=== PATIENT | female | born 2000 | race African-American/Black ===

== ENCOUNTER 2018-05-20 20:40 | Emergency (ER) | payer OTHER ==
[2018-05-20] MEDS ORDERED: LIDOCAINE 1% MPF 2 ML AMPULE ONE (21:12)
[2018-05-20] MEDS ORDERED: TETANUS & DIPHTHERIA TOX,ADULT 0.5 ML VIAL ONE (21:15)
[2018-05-20] MEDS ORDERED: LIDOCAINE 2% MPF 5 ML VIAL ONE (21:15)
--- NOTE | 2018-05-20 21:35 | ER ---
Nurse's Notes [facility] Name: Nhung Jiang Age: 17 yrs Sex: Female : 2000 Arrival Date: 05/20/2018 Time: 20:44 Bed 13 Private MD: Diagnosis: Thumb Laceration Presentation: 05/20 20:51 Presenting complaint: Patient states: Slammed thumb in metal door approx 2015. I dont ch know when my last tetanus shot was, and it hurts to move it. Transition of care: patient was not received from another setting of care. Onset of symptoms was May 20, 2018 at 20:15. Risk Assessment: Do you want to hurt yourself or someone else? Patient reports no desire to harm self or others. Initial Sepsis Screen: Does the patient meet any 2 criteria? No. Patient's initial sepsis screen is negative. Does the patient have a suspected source of infection? No. Patient's initial sepsis screen is negative. Care prior to arrival: None. 20:51 Method Of Arrival: Ambulatory 20:51 Acuity: KARINE 4 ch Triage Assessment: 20:52 General: Appears in no apparent distress. comfortable, Behavior is calm, cooperative, ch appropriate for age. HOME APPLIANCE TECH: 20:52 LMP N/A - Depo-provera ch Historical: - Allergies: 20:52 No Known Allergies; ch - Home Meds: 20:52 Depo-Provera IM [Active]; ch - PMHx: 20:52 None; ch - PSHx: 20:52 None; ch - Immunization history:: Adult Immunizations up to date, Last tetanus immunization: unknown, Flu vaccine is not up to date. - Social history:: Smoking status: Patient/guardian denies using tobacco, Patient/guardian denies using alcohol, street drugs. - Ebola Screening: : Patient negative for fever greater than or equal to 101.5 degrees Fahrenheit, and additional compatible Ebola Virus Disease symptoms Patient denies exposure to infectious person Patient denies travel to an Ebola-affected area in the 21 days before illness onset No symptoms or risks identified at this time. Screenin:00 Abuse screen: Denies threats or abuse. Nutritional screening: No deficits noted. jb4 Tuberculosis screening: No symptoms or risk factors identified. Fall Risk None identified. Assessment: 21:00 General: Appears in no apparent distress. comfortable, Behavior is calm, cooperative, jb4 appropriate for age. Pain: Complains of pain in Left thumb Pain does not radiate. Pain currently is 10 out of 10 on a pain scale. Quality of pain is described as throbbing. Neuro: Level of Consciousness is awake, alert, obeys commands, Oriented to person, place, time, situation. Cardiovascular: Patient's skin is warm and dry. Respiratory: Airway is patent Respiratory effort is even, unlabored, Respiratory pattern is regular, symmetrical. GI: No signs and/or symptoms were reported involving the gastrointestinal system. : No signs and/or symptoms were reported regarding the genitourinary system. EENT: No signs and/or symptoms were reported regarding the EENT system. Derm: Skin is intact, Skin is dry, Skin is normal, Skin temperature is warm. Musculoskeletal: Circulation, motion, and sensation intact. Injury Description: Laceration sustained to left thumb. 21:59 Reassessment: Patient appears in no apparent distress at this time. Patient and/or jb4 family updated on plan of care and expected duration. Pain level reassessed. Patient is alert, oriented x 3, equal unlabored respirations, skin warm/dry/pink. Discussed D/c, F/u with pt, denies questions or concerns. Vital Signs: 20:52 BP 134 / 87; Pulse 80; Resp 12; Temp 97.7; Pulse Ox 100% on R/A; Weight 77.11 kg; ch Height 5 ft. 7 in. (170.18 cm); Pain 9/10; 21:59 BP 115 / 70; Pulse 67; Resp 16; Pulse Ox 100% on R/A; jb4 20:52 Body Mass Index 26.63 (77.11 kg, 170.18 cm) ED Course: 20:44 Patient arrived in ED. es 20:52 Triage completed. 20:52 Arm band placed on left wrist. Patient placed in an exam room, on a stretcher, wound ch covered with NS soaked gauze. 20:54 Suleman Kumar PA is PHCP. [facility] 20:55 Chang Pérez MD is Attending Physician. [facility] 21:00 Patient has correct armband on for positive identification. Bed in low position. Call jb4 light in reach. Side rails up X 1. Pulse ox on. NIBP on. 21:08 Atlantic, Zeeshan, RN is Primary Nurse. jb4 21:29 Hand Left 3 View XRAY In Process Unspecified. EDMS 21:34 Simone Gutiérrez MD is Referral Physician. [facility] 22:00 No provider procedures requiring assistance completed. Patient did not have IV access jb4 during this emergency room visit. Administered Medications: 21:12 Drug: Tetanus-Diphtheria Toxoid Adult 0.5 ml {Biologist Aide: [employer]. Exp: jb4 05/27/2020. Lot #: [id number]. } Route: IM; Site: right deltoid; 21:36 Follow up: Response: No adverse reaction jb4 21:24 Drug: Lidocaine (1 %) 20 ml {Note: Administered by ED Provider..} Volume: 20 ml; Route: jb4 Infiltration; 21:36 Follow up: Response: No adverse reaction jb4 Outcome: 21:34 Discharge ordered by MD. [facility] 22:00 Discharged to home ambulatory, with friend. jb4 22:00 Condition: stable 22:00 Discharge instructions given to patient, friend, Instructed on discharge instructions, follow up and referral plans. Demonstrated understanding of instructions, follow-up care. 22:01 Patient left the ED. jb4 Signatures: Dispatcher [employer] EDCristina Garcia, RN RN Suelman Douglas PA PA [facility] Zaria Fowler James, RN RN jb4
--- NOTE | 2018-05-20 21:36 | EDPHYS ---
Physician Documentation [facility] Name: Nhung Jiang Age: 17 yrs Sex: Female : 2000 Arrival Date: 05/20/2018 Time: 20:44 Bed 13 Private MD: ED Physician Chang Pérez HPI: 05/20 21:01 This 17 yrs old Black Female presents to ER via Ambulatory with complaints of Thumb jmm Injury. 21:01 The patient or guardian reports injury, a laceration. The complaints affect the dorsal jmm aspect of proximal phalanx of left thumb. Onset: The symptoms/episode began/occurred acutely, just prior to arrival. Modifying factors: The symptoms are alleviated by nothing, the symptoms are aggravated by nothing. Associated signs and symptoms: Pertinent positives: numbness distally. This is a 17 year old female that presents to the ED with left thumb laceration and numbness that presents to the ED with a laceration after accidently slamming a door on her hand. Denies other injury. . [employer]OCIATE: 20:52 LMP N/A - Depo-provera Historical: - Allergies: 20:52 No Known Allergies; ch - Home Meds: 20:52 Depo-Provera IM [Active]; ch - PMHx: 20:52 None; ch - PSHx: 20:52 None; ch - Immunization history:: Adult Immunizations up to date, Last tetanus immunization: unknown, Flu vaccine is not up to date. - Social history:: Smoking status: Patient/guardian denies using tobacco, Patient/guardian denies using alcohol, street drugs. - Ebola Screening: : Patient negative for fever greater than or equal to 101.5 degrees Fahrenheit, and additional compatible Ebola Virus Disease symptoms Patient denies exposure to infectious person Patient denies travel to an Ebola-affected area in the 21 days before illness onset No symptoms or risks identified at this time. ROS: 21:01 Constitutional: Negative for fever, chills, and weight loss, Cardiovascular: Negative jmm for chest pain, palpitations, and edema, Respiratory: Negative for shortness of breath, cough, wheezing, and pleuritic chest pain. 21:01 MS/extremity: Positive for injury or acute deformity. 21:01 Skin: Positive for laceration(s). 21:01 All other systems are negative. Exam: 21:01 Head/Face: atraumatic. Eyes: EOMI, no conjunctival erythema appreciated ENT: Moist [facility] Mucus Membranes Neck: Trachea midline, Supple Chest/axilla: Normal chest wall appearance and motion. Cardiovascular: Regular rate and rhythm. No edema appreciated Respiratory: Normal respirations, no respiratory distress appreciated Abdomen/GI: Non distended, soft Back: Normal ROM 21:01 Constitutional: The patient appears in no acute distress, alert, awake. 21:01 Musculoskeletal/extremity: FROM against resistance noted to the left thumb, < 2 sec distal cap refill, decreased sensation noted distally. . 21:01 Skin: 1.5 cm laceration noted to the left thumb. 21:01 Neuro: Motor: is normal. 21:01 Psych: Behavior/mood is pleasant, cooperative. Vital Signs: 20:52 BP 134 / 87; Pulse 80; Resp 12; Temp 97.7; Pulse Ox 100% on R/A; Weight 77.11 kg; ch Height 5 ft. 7 in. (170.18 cm); Pain 9/10; 21:59 BP 115 / 70; Pulse 67; Resp 16; Pulse Ox 100% on R/A; jb4 20:52 Body Mass Index 26.63 (77.11 kg, 170.18 cm) ch Laceration: 21:01 Wound Repair of 1.5cm ( 0.6in ) subcutaneous laceration to dorsal aspect of proximal jmm phalanx of left thumb. Distal neuro/vascular/tendon intact. Anesthesia: Local anesthetic administered with 2 mls of 2% lidocaine. Wound prep: Moderate cleansing with betadine by me, Wound explored moderately. Skin closed with 3 5-0 Prolene using simple sutures and sterile technique. Dressed with non-adherent dressing. Patient tolerated well. MDM: 21:01 Patient medically screened. [facility] 21:13 Data reviewed: vital signs, nurses notes. Counseling: I had a detailed discussion with keiko the patient and/or guardian regarding: the historical points, exam findings, and any diagnostic results supporting the discharge/admit diagnosis, radiology results, the need for outpatient follow up, to return to the emergency department if symptoms worsen or persist or if there are any questions or concerns that arise at home. 21:13 ED course: Motor function intact. Due to complaints of numbness, I advised the patient [facility] to follow up with hand surgery for wound evaluation. Wound infection return precautions given. . 05/20 21:02 Order name: Hand Left 3 View XRAY; Complete Time: 03:09 [facility] Administered Medications: 21:12 Drug: Tetanus-Diphtheria Toxoid Adult 0.5 ml {Glass Presser: [employer]. Exp: jb4 05/27/2020. Lot #: [id number]. } Route: IM; Site: right deltoid; 21:36 Follow up: Response: No adverse reaction jb4 21:24 Drug: Lidocaine (1 %) 20 ml {Note: Administered by ED Provider..} Volume: 20 ml; Route: jb4 Infiltration; 21:36 Follow up: Response: No adverse reaction jb4 Disposition: 05/21 03:09 Co-signature as Attending Physician, Chang Pérez MD. rn Disposition: 05/20/18 21:34 Discharged to Home. Impression: Thumb Laceration. - Condition is Stable. - Discharge Instructions: Laceration Care, Adult. - Medication Reconciliation Form, Thank You Letter, Antibiotic Education, Prescription Opioid Use form. - Follow up: Simone Gutiérrez MD; When: 1 week; Reason: Recheck today's complaints, Continuance of care, Staple/Suture removal, Re-evaluation by your physician. - Notes: Please follow up with plastics/hand surgery if you continue to have numbness. Sutures will need to be removed in 7 days. Please return to the ED if you develop weakness to the humb, fever, redness around the wound site or any other signs of infection. Signatures: Dispatcher [employer] EDMS Cristina Duron RN RN ch Mickail, Joel, PA PA jmm Nieto, Roman, MD MD rn Bryson, James, RN RN jb4 Corrections: (The following items were deleted from the chart) 05/20 22:01 21:34 05/20/2018 21:34 Discharged to Home. Impression: Thumb Laceration. Condition is jb4 Stable. Forms are Medication Reconciliation Form, Thank You Letter, Antibiotic Education, Prescription Opioid Use. Follow up: Simone Gutiérrez; When: 1 week; Reason: Recheck today's complaints, Continuance of care, Staple/Suture removal, Re-evaluation by your physician. keiko
--- NOTE | 2018-05-20 21:56 | RAD REPORT ---
EXAM DESCRIPTION: RAD - Hand Left 3 View - 05/20/2018 9:29 pm CLINICAL HISTORY: Hand pain, blunt force trauma to the thumb COMPARISON: None. FINDINGS: No fracture, dislocation or periosteal reaction noted. No foreign body or significant soft tissue abnormality. IMPRESSION: Negative left hand examination.
== END 2018-05-20 22:01 | disposition home or self-care (01) ==
LOC: ER 20:40
PROC: 0JQK0ZZ Repair Left Hand Subcutaneous Tissue and Fascia, Open Approach (ICD-10-PCS; principal; 2018-05-20)
DX: S61.012A Laceration without foreign body of left thumb without damage to nail, initial encounter (principal); W22.8XXA Striking against or struck by other objects, initial encounter; Y93.89 Activity, other specified; Y92.9 Unspecified place or not applicable; Z23 Encounter for immunization
CPT/HCPCS: 90714; 99283; J2001

== ENCOUNTER 2024-02-13 20:29 | Emergency (ER) | payer OTHER ==
--- OUTSIDE RECORDS SUMMARY | 2024-02-13 20:32 | XMS REPORT | Continuity of Care Document ---
Author Name Unknown Address [address] [place] [address] [facility] [address] [place] [address] Care Team Providers Care Automotive Accessory Installer Name Role Phone FIDENCIO CALDERÓN Primary Care Physician Unavailab le [email or web address]_Kadiyala_S Attending Clinician Unavaila ble Only, Ang Db Test Attending Clinician Unavailabl anahy Pimentel PLAYGROUND SUPERVISORNani Attending Clinician [phone] Margarita Hurtado Attending Clinician [phone] Doctor Unassigned, [place] Attending Clinician U DOREEN Day Attending Clinician Unavailable Miles PLAYGROUND SUPERVISORDoreen Attending Clinician [phone] Thalia Murphy Attending Clinician GC_GCBZW_Kadiyala_S Admitting Clinician Unavaila DOREEN Ortiz Admitting Clinician Unavailable Payers Payer Name Policy Type Policy Number Effective Date Expirati on Date Source Problems Condition Name Condition Details Condition Category Status Onset Date Resolution Date Last Treatment Date Treating Clinician Comments Source No known active problems No known active problems Disease [facility] Allergies, Adverse Reactions, Alerts Allergy Name Allergy Type Status Severity Reaction(s) Onset Date Inactive Date Treating Clinician Comments Source NO KNOWN ALLERGIE S Drug Class Active [facility] Social History Social Habit Start Date Stop Date Quantity Comments Source Exposure to SARS-CoV-2 (event) Yes [facility] Sex Assigned At 2000 00:00:00 2000 00:00:00 [facility] Smoking Status Start Date Stop Date Source Unknown if ever smoked [facility] Medications Ordered Medication Name Filled Medication Name Start Date Stop Date Current Medication? Ordering Clinician Indication Dosage Frequency Signature (SIG) Comments Components Source ibuprofen 600 mg tablet 12-11 00:00: 00 Yes [id number] 600mg Take 1 tablet by mouth every 6 (six) hours as needed for Pain (scale 4-6). [facility] albuterol 90 mcg/actuati on inhaler 12-11 00:00: 00 Yes [id number] 2{puff} Inhale 2 Puffs every 4 (four) hours as needed for Wheezing or Shortness of Breath. [facility] inhalationa l spacing device (BREATHERIT E MDI SPACER) 12-11 00:00: 00 Yes [id number] Use as with MDI as directed [facility] ondansetron (ZOFRAN ODT) 4 mg disintegrat ing tablet 12-11 00:00: 00 Yes [id number] 4mg Take 1 tablet by mouth every 8 (eight) hours as needed for Nausea and Vomiting (N/V). [facility] benzonatate 100 mg capsule 12-11 00:00: 00 Yes [id number] 100mg Take 1 capsule by mouth 3 (three) times daily as needed for Cough. [facility] iohexol (OMNIPAQUE 350 BULK-100 mL) injection 120 mL 09-29 02:15: 00 09-29 01:58 :00 No 120mL 120 mL, Intravenou s, ONCE, 1 dose, 09/29/19 at 2115, Routine [facility] naproxen 375 mg tablet 09-28 00:00: 00 Yes [id number] 105 375mg Take 1 tablet by mouth 2 (two) times daily with meals as needed for Pain (scale 7-10). [facility] No known medications No Un lui [facility] Vital Signs Vital Name Observation Time Observation Value Comments S ource Systolic blood pressure 2020-12-11 19:33:00 139 mm[Hg] [facility] Diastolic blood pressure 2020-12-11 19:33:00 85 mm[Hg] [facility] Heart rate 2020-12-11 19:33:00 95 /min Unive [facility] Body temperature 2020-12-11 19:33:00 37.17 Cande [facility] Respiratory rate 2020-12-11 19:33:00 14 /min [facility] Body weight 2020-12-11 19:33:00 90.719 kg [facility] Oxygen saturation in Arterial blood by Pulse oximetry 2020-12-11 19:33:00 99 /min [facility] Systolic blood pressure 2019-09-30 02:35:00 128 mm[Hg] [facility] Diastolic blood pressure 2019-09-30 02:35:00 71 mm[Hg] [facility] Heart rate 2019-09-30 02:35:00 68 /min Unive [facility] Respiratory rate 2019-09-30 02:35:00 18 /min [facility] Oxygen saturation in Arterial blood by Pulse oximetry 2019-09-30 02:35:00 100 /min [facility] Body temperature 2019-09-29 23:34:00 37.28 [facility] Body height 2019-09-29 23:34:00 170.2 cm [facility] Body weight 2019-09-29 23:34:00 91.173 kg [facility] BMI 2019-09-29 23:34:00 31.48 kg/m2 [facility] Systolic blood pressure 2019-06-29 20:08:00 121 mm[Hg] [facility] Diastolic blood pressure 2019-06-29 20:08:00 84 mm[Hg] [facility] Heart rate 2019-06-29 20:08:00 88 /min Unive [facility] Body temperature 2019-06-29 20:08:00 36.28 [facility] Respiratory rate 2019-06-29 20:08:00 18 /min [facility] Body weight 2019-06-29 20:08:00 88.497 kg [facility] Oxygen saturation in Arterial blood by Pulse oximetry 2019-06-29 20:08:00 99 /min [facility] Procedures Procedure Date / Time Performed Performing Clinicia n Source ASSIGNMENT OF BENEFITS 2020-12-11 20:43:57 Docto r Unassigned, [place] [facility] COVID-19 (ID NOW RAPID TESTING) 2020-12-11 19:36:00 Ricardo Tomas [facility] NOTICE OF PRIVACY PRACTICES 2020-12-11 19:28:53 Doctor Unassigned, [place] [facility] CONSENT/REFUSAL FOR DIAGNOSIS AND TREATMENT 2020-12-11 19:28:32 Doctor Unassigned, [place] [facility] CT CHEST PULMONARY ANGIOGRAM 2019-09-30 02:02:45 Doreen Aquino [facility] BASIC METABOLIC PANEL (NA, K, CL, CO2, GLUCOSE, BUN, CREATININE, CA) 2019-09-30 00:46:00 Doreen Aquino [facility] D-DIMER 2019-09-30 00:46:00 [facility] POCT TEST 2019-09-30 00:38:00 Timbo Aquino [facility] XR ANKLE 3+ VW LEFT 2019-09-30 00:17:24 Vanessa Dubon ra [facility] XR CHEST 2 VW 2019-09-30 00:17:05 Doreen Aquino [facility] EKG-12 LEAD 2019-09-29 23:56:40 Doreen Aquino [facility] NOTICE OF PRIVACY PRACTICES 2019-09-29 23:25:44 Doctor Unassigned, [place] [facility] CONSENT/REFUSAL FOR DIAGNOSIS AND TREATMENT 2019-09-29 23:25:31 Doctor Unassigned, [place] [facility] Encounters Start Date/Time End Date/Time Encounter Type Admission Type Attending Clinicians Care Facility Care Department Encounter ID Source 2021-03-09 13:28:56 Emergency [facility] [id number] [facility] 2023-03-05 00:00:00 2023-03-05 00:00:00 Outpatient GC_GCBZW_Ka diyala_S PRIV PRIV [id number] [facility] 2023-03-05 00:00:00 2023-03-05 00:00:00 Outpatient GC_GCBZW_Ka diyala_S PRIV PRIV [id number] [facility] 2021-01-15 15:34:16 2021-01-15 15:44:16 Laboratory Only Only, Ang Db Test Nani Pimentel [facility] [id number] [id number] [facility] 2021-01-15 15:15:00 2021-01-15 15:15:00 Outpatient R [facility] [id number] [facility] 2020-12-11 14:36:00 2020-12-11 15:54:00 Emergency Margarita Singleton [facility] [id number] [facility] 2020-12-11 00:00:00 2020-12-11 00:00:00 Orders Only Doctor Unassigned, [place] [facility] [id number] [id number] [facility] 2019-09-29 18:32:09 2019-09-29 22:10:00 [facility] E[facility] [id number] [facility] 2019-09-29 18:32:09 2019-09-29 22:10:00 Emergency Doreen Aquino [facility] [id number] [id number] [facility] 2019-06-29 14:09:21 2019-06-29 15:20:00 Emergency DanoThalia [facility] [id number] [facility] Results Test Description Test Time Test Comments Results Result Co mments Source [id number] 01:30:00* Test Item Value Reference Range Interpretation Comments D-DIMER (test code = 4494340542) See_Comment H [Automated message] The system which generated this result transmitted reference range: <0.41 ?g/mL (FEU). The reference range was not used to interpret this result as normal/abnormal. JOLLY (test code = JOLLY) This test may be used in conjunction with a clinical pretest probability (PTP) assessment model to exclude venous thromboembolism (VTE) in patients suspected of deep venous thrombosis (DVT) and pulmonary embolism (PE) A D-Dimer value less than 0.50 ?g/ml (FEU) has a negative predicative value of 96 to 100% (95% CI)and 97 to 100% (95% CI) as an aid in the diagnosis of deep vein thrombosis (DVT) and pulmonary embolism when there is low or moderate pretest probability of PE or DVT. D-Dimer values are expressed in initial fibrinogen equivalent units (FEU)" The assay results should be used with other information, including the clinical context, in forming a diagnosis. Lab Interpretation (test code = 61265-4) Abnormal [facility] (NA, K, CL, CO2, GLUCOSE, BUN, CREATININE, CA)2019-09-30 01:25:00* Test Item Value Reference Range Interpretation Comme nts NA (test code = 0139037717) 140 mmol/L 135-145 K (test code = 8628894593) 4.0 mmol/L 3.5-5 CL (test code = 6146546808) 107 mmol/L 98-108 CO2 TOTAL (test code = 2574691337) 22 mmol/L 23-31 L AGAP (test code = 8641851013) 2-16 BUN (test code = 1136731287) 13 mg/dL 7-23 GLUCOSE (test code = 5932782967) 93 mg/dL 70-110 CREATININE (test code = 0063518126) 0.68 mg/dL 0.5-1.04 CALCIUM (test code = 7727320793) 9.5 mg/dL 8.6-10.6 eGFR Calculation (Non-) (test code = 4532855033) mL/min/1.73m2 eGFR Calculation () (test code = 5374733083) mL/min/1.73m2 JOLLY (test code = JOLLY) Association of Glomerular Filtration Rate (GFR) and Staging of Kidney Disease* + --+ --+ ------+| GFR (mL/min/1.73 m2) ?| With Kidney Damage ?| ?Without Kidney Damage+ --------+ --------+ +| ?>90 ?| ?Stage one ?| ? Normal ?+ ---+ ---+ -------+| ?60-89 ?| ?Stage two ?| ? Decreased GFR ? + --+ --+ ------+| ?30-59 ?| ?Stage three ?| ? Stage three ? + --+ --+ ------+| ?15-29 ?| ?Stage four ? | ? Stage four ?+ ---+ ---+ -------+| ?<15 (or dialysis) ? ?| ?Stage five ? | ? Stage five ?+ ---+ ---+ -------+ *Each stage assumes the associated GFR level has been in effect for at least three months. ?Stages 1 to 5, with or without kidney disease, indicate chronic kidney disease. Notes: Determination of stages one and two (with eGFR >59mL/min/1.73 m2) requires estimation of kidney damage for at least three months as defined by structural or functional abnormalities of the kidney, manifested by either:Pathological abnormalities or Markers of kidney damage (including abnormalities in the composition of the blood or urine or abnormalities in imaging tests). Lab Interpretation (test code = 83762-8) Abnormal [facility] 2 [id number] 00:43:22No acute cardiopulmonary abnormality. Preliminary Report Dictated by Resident: Alexis Jacobo ?MD Hayes., have reviewed this study and agree withthe above report.EXAM: XR CHEST 2 VW HISTORY: chest pain COMPARISON: Chest x-ray 08/20/2018 Technique: ?PA and lateral view radiograph of the chest FINDINGS: The lungs are clear. No focal consolidation, pleural effusion orpneumothorax is seen. The cardiac silhouette is normal in size. No acute bony abnormality. [facility], Radiant Results Inft User - 09/29/2019 7:44 PM CDTEXAM: XR CHEST 2 VWHISTORY: chest pain COMPARISON: Chest x-ray 08/20/2018Technique: PA and lateral view radiograph of the chestFINDINGS:The lungs are clear. No focal consolidation, pleural effusion orpneumothorax is seen. The cardiac silhouette is normal in size.No acute bony abnormality.IMPRESSIONNo acute cardiopulmonary abnormality.Preliminary Report Dictated by Resident: Chadd Bear, Alexis Koo MD., have reviewed this study and agree withthe above report. [facility] [id number] 00:38:00* Test Item Value Reference Range Interpretation Comme nts POCT PREG (test code = 1605) Negative On board controls acceptable with C Line (test code = 3574) Present POCT PREG LOT # (test code = 3575) HCG [id number] POCT PREG TEST DATE ( test code = 3576) 12/06/2020 Lab Interpretation (test cod e = 76050-4) Normal [facility]
[2024-02-13] MEDS ORDERED: NA CHLORIDE 0.9% 1,000 ML ONE (21:22)
[2024-02-13] MEDS ORDERED: ONDANSETRON 4 MG/2 ML VIAL ONE (21:22)
[2024-02-13 21:49] LABS: Absolute Eosinophils 0.1 K/uL (0-0.5); Absolute Lymphocytes (CBC) 2.6 K/uL (0.7-4.9); Absolute Monocytes 0.7 K/uL (0.1-1.3); Absolute Neutrophil 5.4 K/uL (1.8-8.0); Basophils % 0.5 % (0-1.3); Eosinophils % 0.8 % (0-4.4); Hematocrit 37.8 % (36.0-45.0); Hemoglobin 12.8 g/dL (12.0-15.0); Lymphocytes % 29.8 % (15.3-44.8); MCH 32.9 pg (27.0-35.0); MCHC 33.8 g/dL (32.0-36.0); MCV 97.2 fL (80-100); Monocytes % 7.6 % (3.3-12.3); Neutrophils % 61.3 % (41.7-73.7); Platelets 307 thou/uL (152-406); RBC Red Blood Cell Count 3.88 M/uL (3.86-4.86); Red Cell Distribution Width 11.9 % (12.1-15.2)
[2024-02-13 21:50] LABS: Specific Gravity 1.021 (1.005-1.030)
[2024-02-13 21:54] LABS: Specific Gravity 1.022 (1.005-1.030); Sqamous Epithelial <5 /HPF (None Seen); Urine Bacteria None Seen /HPF (<20); Urine Bilirubin NEGATIVE (Negative); Urine Blood 1+ (Negative); Urine Clarity Clear (Clear); Urine Color Light-Yellow (Yellow); Urine Culture Reflex Order NOT NEEDED; Urine Glucose NEGATIVE (Negative); Urine Ketones 1+ (Negative); Urine Microscopic Reflex YN ORDER UMIC; Urine Mucus 2+ /HPF (None Seen); Urine Nitrite NEGATIVE (Negative); Urine Protein TRACE (Negative); Urine RBC <5 /HPF (None Seen); Urine Urobilinogen Normal (Normal); Urine WBC <5 /HPF (<5)
[2024-02-13] MEDS ORDERED: KETOROLAC 30 MG/ML INJ ONE (22:02)
[2024-02-13 22:09] LABS: Anion Gap 9.1 mEq/L (5.0-15.0); BUN Blood Urea Nitrogen 16 mg/dL (7-18); Bicarbonate 25 mEq/L (21-32); Glomerular Filtration Rate 93 ml/min (=/>90); Glucose Level 85 mg/dL (74-106); Potassium 3.1 mEq/L (3.5-5.1); Sodium Level 136 mEq/L (136-145)
[2024-02-13 22:17] LABS: HCG, Quantitative < 1 mIU/mL (1-3)
--- NOTE | 2024-02-13 23:31 | ER ---
Nurse's Notes [facility] Name: Nhung Jiang Age: 23 yrs Sex: Female : 2000 Arrival Date: 02/13/2024 Time: 20:29 Bed 7 Private MD: Diagnosis: Irregular menstruation, unspecified Presentation: 02/12 20:38 Chief complaint: Patient states: Vaginal bleeding with cramping and back pain onset cm10 last night. Pt states that her period was supposed to start 4-5 days ago. Pt states that her bleeding has never been this bad. Coronavirus screen: Client denies travel out of the [place] in the last 14 days. Ebola Screen: Patient denies travel to an Ebola-affected area in the 21 days before illness onset. No symptoms or risks identified at this time. Initial Sepsis Screen: Does the patient meet any 2 criteria? No. Patient's initial sepsis screen is negative. Does the patient have a suspected source of infection? No. Patient's initial sepsis screen is negative. Risk Assessment: Do you want to hurt yourself or someone else? Patient reports no desire to harm self or others. Onset of symptoms was February 13, 2024. 20:38 Method Of Arrival: Ambulatory cm10 20:38 Acuity: KARINE 3 cm10 Triage Assessment: 20:39 General: Appears in no apparent distress. comfortable, Behavior is calm, cooperative. cm10 Neuro: No deficits noted. Level of Consciousness is awake, alert, obeys commands, Oriented to person, place, time, situation, Appropriate for age. Respiratory: No deficits noted. Airway is patent Respiratory effort is even, unlabored, Respiratory pattern is regular, symmetrical. 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 - Infectious Disease History:: Denies. - Social history:: Smoking status: Reported history of juuling and/or vaping. Screenin:00 [facility] ED Fall Risk Assessment (Adult) History of falling in the last 3 months, al5 including since admission No falls in past 3 months (0 pts) Confusion or Disorientation No (0 pts) Intoxicated or Sedated No (0 pts) Impaired Gait No (0 pts) Mobility Assist Device Used No (0 pt) Altered Elimination No (0 pt) Score/Fall Risk Level 0 - 2 = Low Risk Oriented to surroundings, Maintained a safe environment, Hourly rounding (assess needs \T\ fall precautionary measures) done. 21:00 Abuse screen: Denies threats or abuse. Denies injuries from another. Nutritional al5 screening: No deficits noted. Tuberculosis screening: No symptoms or risk factors identified. Assessment: 21:00 General: Appears in no apparent distress. uncomfortable, Behavior is calm, cooperative. al5 Pain: Complains of pain in low back area, suprapubic area, right lower quadrant and left lower quadrant Pain currently is 7 out of 10 on a pain scale. Neuro: Level of Consciousness is awake, alert, obeys commands, Oriented to person, place, time, situation. Cardiovascular: Capillary refill < 3 seconds Patient's skin is warm and dry. Respiratory: Airway is patent Respiratory effort is even, unlabored, Respiratory pattern is regular, symmetrical. GI: Abdomen is flat, non-distended, Reports lower abdominal pain. : Reports pain in lower back vaginal bleeding that is bright red, with clots, heavy flow since this morning, states she goes through a super plus tampon every 2 hours which is not normal for her. EENT: No signs and/or symptoms were reported regarding the EENT system. Derm: Skin is intact, is healthy with good turgor, Skin is normal. Musculoskeletal: No signs and/or symptoms reported regarding the musculoskeletal system. Vital Signs: 20:38 BP 131 / 81; Pulse 76; Resp 16; Temp 98.9; Pulse Ox 99% on R/A; Weight 86.18 kg; Height cm10 5 ft. 6 in. ; Pain 7/10; 20:54 BP 121 / 81; Pulse 64; Resp 18; Pulse Ox 98% on R/A; al5 21:00 BP 119 / 82; Pulse 64; Resp 18; Pulse Ox 99% on R/A; al5 21:15 BP 118 / 76; Pulse 71; Resp 18; Pulse Ox 98% on R/A; al5 21:30 BP 124 / 86; Pulse 70; Resp 18; Pulse Ox 99% on R/A; al5 21:45 BP 110 / 67; Pulse 60; Resp 18; Pulse Ox 98% on R/A; al5 22:30 BP 115 / 78; Pulse 72; Resp 18; Pulse Ox 97% on R/A; al5 22:45 BP 114 / 79; Pulse 69; Resp 18; Pulse Ox 100% on R/A; al5 23:00 BP 100 / 75; Pulse 70; Resp 18; Pulse Ox 97% on R/A; al5 23:15 BP 116 / 79; Pulse 65; Resp 18; Pulse Ox 99% on R/A; al5 20:38 Body Mass Index 30.67 (86.18 kg, 167.64 cm) cm10 20:38 Pain Scale: Adult cm10 ED Course: 20:32 Patient arrived in ED. ra3 20:32 Agnieszka Leonard FNP-C is [facility] kb 20:32 Randall Deluna MD is Attending Physician. kb 20:39 Triage completed. cm10 20:40 Arm band placed on right wrist. Patient placed in an exam room, on a stretcher. cm10 21:00 Patient has correct armband on for positive identification. Bed in low position. Call al5 light in reach. Side rails up X2. Provided Education on: plan of care. 21:20 Shawnee Sierra, RN is Primary Nurse. al5 21:36 No provider procedures requiring assistance completed. Inserted saline lock: 22 gauge al5 in right antecubital area, using aseptic technique. 21:43 Abo/rh Typing Sent. al5 21:43 Basic Metabolic Panel Sent. al5 21:43 CBC with Diff Sent. al5 21:43 Test, Urine Sent. al5 21:43 Quantitative Hcg Sent. al5 21:43 Urinalysis w/ reflexes Sent. al5 22:36 US Transvaginal Study (Probe) In Process Unspecified. EDMS 23:43 IV discontinued, intact, bleeding controlled, No redness/swelling at site. Pressure al5 dressing applied. Administered Medications: 21:42 Drug: Ondansetron IVP 4 mg IVP once; over 2 minutes Route: IVP; Site: right antecubital;al5 23:33 Follow up: Response: No adverse reaction; Nausea is decreased al5 21:43 Drug: NS 0.9% IV 1000 ml IV at 1000 ml once Route: IV; Rate: 1000 ml; Site: right al5 antecubital; 23:33 Follow up: Response: No adverse reaction; IV Status: Completed infusion; IV Intake: al5 1000ml 22:05 Drug: Ketorolac IVP 15 mg IVP once Route: IVP; Site: right antecubital; al5 23:32 Follow up: Response: No adverse reaction; Pain is decreased al5 23:39 Drug: Potassium Chloride PO 40 mEq PO once Route: PO; al5 23:39 Follow up: Response: No adverse reaction; Medication administered at discharge. al5 Medication: 21:00 VIS not applicable for this client. al5 Intake: 23:33 IV: 1000ml; Total: 1000ml. al5 Outcome: 23:30 Discharge ordered by . jhoan 23:43 Discharged to home ambulatory, al5 23:43 Condition: good 23:43 Discharge instructions given to patient, Instructed on discharge instructions, follow up and referral plans. Demonstrated understanding of instructions, follow-up care, 23:43 Patient left the ED. al5 Signatures: Dispatcher [employer] EDPA Agnieszka Leonard, SARAH-C EMERGENCY DEPARTMENT MANAGER-Karlie Wagner, RN RN cm10 Christa Mercer 3 Shawnee Sierra RN RN al5 Corrections: (The following items were deleted from the chart) 21:50 21:44 General: Appears in no apparent distress. uncomfortable, Behavior is calm, al5 cooperative, al5 21:50 21:44 Pain: Complains of pain in low back area, suprapubic area, right lower quadrant al5 and left lower quadrant Pain currently is 7 out of 10 on a pain scale. al5 21:50 21:44 Neuro: Level of Consciousness is awake, alert, obeys commands, Oriented to al5 person, place, time, situation, al5 21:50 21:44 Cardiovascular: Capillary refill < 3 seconds Patient's skin is warm and dry. al5 al5 21:50 21:44 Respiratory: Airway is patent Respiratory effort is even, unlabored, Respiratory al5 pattern is regular, symmetrical, al5 21:50 21:44 GI: Abdomen is flat, non-distended, Reports lower abdominal pain, al5 al5 21:50 21:44 : Reports pain in lower back vaginal bleeding that is bright red, with clots, al5 heavy flow since this morning, states she goes through a super plus tampon every 2 hours which is not normal for her. al5 :50 21:44 EENT: No signs and/or symptoms were reported regarding the EENT system. al5 al5 :50 21:44 Derm: Skin is intact, is healthy with good turgor, Skin is normal, al5 al5 :50 21:44 Musculoskeletal: No signs and/or symptoms reported regarding the musculoskeletal al5 system. al5 :57 20:39 PMHx: None; cm10 al5
--- NOTE | 2024-02-13 23:31 | EDPHYS ---
Physician Documentation [facility] Name: Nhung Jiang Age: 23 yrs Sex: Female : 2000 Arrival Date: 02/13/2024 Time: 20:29 Bed 7 Private MD: ED Physician Randall Deluna HPI: 02/12 21:39 This 23 yrs old Black Female presents to ER via Ambulatory with complaints of Vaginal kb Bleeding - and cramping, Back Pain. 21:39 Pt is a 23 year old female who presents for vaginal bleeding with abd and low back kb cramping pain that started this morning. States the bleeding is heavier than her normal cycle. Reports she was supposed to start her period 5 days ago. Denies fever, urinary symptoms. 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 - Infectious Disease History:: Denies. - Social history:: Smoking status: Reported history of juuling and/or vaping. ROS: 21:38 Constitutional: As per HPI kb Exam: 21:39 Constitutional: This is a well developed, well nourished patient who is awake, alert, kb and in no acute distress. Head/Face: Normocephalic, atraumatic. ENT: Moist Mucous membranes Cardiovascular: Regular rate Respiratory: Respirations even and unlabored. No increased work of breathing. Talking in full sentences Abdomen/GI: Soft, non-tender. No distention Back: No spinal tenderness. No costovertebral tenderness. Full range of motion. Skin: Warm, dry with normal turgor. Normal color. MS/ Extremity: Pulses equal, no cyanosis. Neurovascular intact. Full, normal range of motion. Neuro: Awake and alert, GCS 15, oriented to person, place, time, and situation. Moves all extremities. Normal gait. Vital Signs: 20:38 BP 131 / 81; Pulse 76; Resp 16; Temp 98.9; Pulse Ox 99% on R/A; Weight 86.18 kg; Height cm10 5 ft. 6 in. ; Pain 7/10; 20:54 BP 121 / 81; Pulse 64; Resp 18; Pulse Ox 98% on R/A; al5 21:00 BP 119 / 82; Pulse 64; Resp 18; Pulse Ox 99% on R/A; al5 21:15 BP 118 / 76; Pulse 71; Resp 18; Pulse Ox 98% on R/A; al5 21:30 BP 124 / 86; Pulse 70; Resp 18; Pulse Ox 99% on R/A; al5 21:45 BP 110 / 67; Pulse 60; Resp 18; Pulse Ox 98% on R/A; al5 22:30 BP 115 / 78; Pulse 72; Resp 18; Pulse Ox 97% on R/A; al5 22:45 BP 114 / 79; Pulse 69; Resp 18; Pulse Ox 100% on R/A; al5 23:00 BP 100 / 75; Pulse 70; Resp 18; Pulse Ox 97% on R/A; al5 23:15 BP 116 / 79; Pulse 65; Resp 18; Pulse Ox 99% on R/A; al5 20:38 Body Mass Index 30.67 (86.18 kg, 167.64 cm) cm10 20:38 Pain Scale: Adult cm10 MDM: 20:32 Patient medically screened. kb 21:39 Data reviewed: vital signs, nurses notes. kb 22:27 Differential diagnosis: menorrhea, ovarian cyst, uterine fibroids, . kb 23:31 Counseling: I had a detailed discussion with the patient and/or guardian regarding the kb historical points, exam findings, and any diagnostic results supporting the discharge/admit diagnosis, lab results, the need for outpatient follow up, an OB/Gyne specialist, to return to the emergency department if symptoms worsen or persist or if there are any questions or concerns that arise at home. ED course: Pt does not want to wait for US results. States she would like to go home. Educated to follow up with MONORAIL HOOKER and US results should be available on the portal in the next few days. . 02/12 20:37 Order name: Abo/rh Typing; Complete Time: 22:09 kb 02/12 20:37 Order name: Basic Metabolic Panel; Complete Time: 22:17 kb 02/12 20:37 Order name: CBC with Diff; Complete Time: 21:50 kb 02/12 20:37 Order name: Test, Urine; Complete Time: 21:58 kb 02/12 20:37 Order name: Quantitative Hcg; Complete Time: 22:17 kb 02/12 20:37 Order name: Urinalysis w/ reflexes; Complete Time: 21:58 kb 02/12 22:18 Order name: US Transvaginal Study (Probe) kb 02/12 20:37 Order name: IV Saline Lock; Complete Time: 21:43 kb 02/12 20:37 Order name: Labs collected and sent; Complete Time: 21:43 kb 02/12 20:37 Order name: NPO; Complete Time: 22:01 kb Administered Medications: 21:42 Drug: Ondansetron IVP 4 mg IVP once; over 2 minutes Route: IVP; Site: right antecubital;al5 23:33 Follow up: Response: No adverse reaction; Nausea is decreased al5 21:43 Drug: NS 0.9% IV 1000 ml IV at 1000 ml once Route: IV; Rate: 1000 ml; Site: right al5 antecubital; 23:33 Follow up: Response: No adverse reaction; IV Status: Completed infusion; IV Intake: al5 1000ml 22:05 Drug: Ketorolac IVP 15 mg IVP once Route: IVP; Site: right antecubital; al5 23:32 Follow up: Response: No adverse reaction; Pain is decreased al5 23:39 Drug: Potassium Chloride PO 40 mEq PO once Route: PO; al5 23:39 Follow up: Response: No adverse reaction; Medication administered at discharge. al5 Disposition: 23:48 Co-signature as Attending Physician, Randall Deluna MD I reviewed the patient's care rt provided by the Advanced Practice Provider and agree with the diagnosis and treatment plan. Disposition Summary: 02/13/24 23:30 Discharge Ordered Notes: Location: Home kb Condition: Stable kb Diagnosis - Irregular menstruation, unspecified kb Followup: kb - With: Emergency Department - When: As needed - Reason: Worsening of condition Followup: kb - With: Private Physician - When: 2 - 3 days - Reason: Recheck today's complaints, Continuance of care, Re-evaluation by your physician Discharge Instructions: - Discharge Summary Sheet kb - Abnormal Uterine Bleeding, Twmg-go-Ctnr kb Forms: - Medication Reconciliation Form kb - Antibiotic Education kb - Prescription Opioid Use kb - Patient Portal Instructions kb - Leadership Thank You Letter kb Signatures: Dispatcher [employer] Agnieszka Villalobos FNP-C FNP-Ckb Randall Deluna MD MD rt Karlie Carbajal RN RN cm10 Shawnee Sierra RN RN al5 Corrections: (The following items were deleted from the chart) 21:57 20:39 PMHx: None; cm10 al5
[2024-02-13] MEDS ORDERED: POTASSIUM CL SA 10 MEQ TAB PO ONE (23:35)
--- NOTE | 2024-02-13 23:48 | RAD REPORT ---
EXAM: US Pelvis Transvaginal CLINICAL HISTORY: VAGINAL BLEEDING TECHNIQUE: Real-time transvaginal pelvic ultrasound with image documentation. Transvaginal imaging was used fo r better evaluation of the endometrium and adnexa. COMPARISON: No relevant prior studies available. FINDINGS: Uterus/cervix: The uterus is anteverted and measures 7.3 x 3.1 x 3.8 cm. The endometrial stripe clifton sures 4 mm in thickness. Nabothian cysts at the level of the cervix. No myometrial mass. Right ovary: The right ovary measures 3.9 x 2.2 x 2.5 cm. Normal blood flow. Left ovary: The left ovary measures 3 x 2 x 2.4 cm. Normal blood flow. Free fluid: No free fluid. Bladder: Empty bladder which cannot be evaluated with this probe. IMPRESSION: No focal uterine abnormality. Electronically signed by: Rogers Grijalva MD 02/13/2024 11:32 PM CDT RP Due to temporary technical issues with the [employer] reporting system, reports are being signed by the in-house radiologist without review as a courtesy to ensure prompt reporting the interpreting radiologist is fully responsible for the content of the report. Transcribed Date/Time: 02/13/2024 11:48 PM
[2024-02-14 00:29] VITALS: TEMP 98.9
[2024-02-14 00:40] VITALS: BP 116/79; O2SAT 99
== END 2024-02-13 23:43 | disposition home or self-care (01) ==
LOC: ER 20:29
DX: N92.6 Irregular menstruation, unspecified (principal)
CPT/HCPCS: 96361; 85025; 81001; 80048; 36415; 86900; 81025; 86901; 84702; 76830; 96375; 96374; 99284; J2405; J7030

== ENCOUNTER 2024-07-08 10:39 | Inpatient (IN) | payer OTHER ==
--- OUTSIDE RECORDS SUMMARY | 2024-07-08 10:42 | XMS REPORT | Continuity of Care Document ---
Author Name Unknown Address [address] [place] [address] [address] [id number] [facility] Address [address] [facility] [address] [place] [address] Care Team Providers Care Poultry Scientist Name Role Phone BRYCE CALDERÓNH Primary Care Physician Unavailab le [email or web address]_S Attending Clinician Unavaila ble Only, Ang Db Test Attending Clinician Unavailabl anahy Pimentel CUSTOMER SERVICE REPNani Attending Clinician [phone] AreliMargarita Goss Attending Clinician [phone] Doctor Unassigned, [place] Attending Clinician U DOREEN Day Attending Clinician Unavailable Miles CUSTOMER SERVICE REPDoreen Barrtet Attending Clinician [phone] Thalia Murphy Attending Clinician [phone] [place]_GCBZW_Kadiyala_S Admitting Clinician Unavaila DOREEN Ortiz Admitting Clinician Unavailable Payers Payer Name Policy Type Policy Number Effective Date Expirati on Date Source Problems Condition Name Condition Details Condition Category Status Onset Date Resolution Date Last Treatment Date Treating Clinician Comments Source No known active problems No known active problems Disease [facility] Allergies, Adverse Reactions, Alerts Allergy Name Allergy Type Status Severity Reaction(s) Onset Date Inactive Date Treating Clinician Comments Source NO KNOWN ALLERGIE S Drug Class Active [facility] Social History Social Habit Start Date Stop Date Quantity Comments Source Exposure to SARS-CoV-2 (event) Yes [facility] Sex Assigned At 2000 00:00:00 2000 00:00:00 [facility] Smoking Status Start Date Stop Date Source Unknown if ever smoked [facility] Medications Ordered Medication Name Filled Medication Name Start Date Stop Date Current Medication? Ordering Clinician Indication Dosage Frequency Signature (SIG) Comments Components Source ibuprofen 600 mg tablet 12-11 00:00: 00 Yes [id number] 600mg Take 1 tablet by mouth every 6 (six) hours as needed for Pain (scale 4-6). [facility] albuterol 90 mcg/actuati on inhaler 12-11 00:00: 00 Yes [id number] 2{puff} Inhale 2 Puffs every 4 (four) hours as needed for Wheezing or Shortness of Breath. [facility] inhalationa l spacing device (BREATHERIT E MDI SPACER) 12-11 00:00: 00 Yes [id number] Use as with MDI as directed [facility] ondansetron (ZOFRAN ODT) 4 mg disintegrat ing tablet 12-11 00:00: 00 Yes [id number] 4mg Take 1 tablet by mouth every 8 (eight) hours as needed for Nausea and Vomiting (N/V). [facility] benzonatate 100 mg capsule 12-11 00:00: 00 Yes [id number] 100mg Take 1 capsule by mouth 3 (three) times daily as needed for Cough. [facility] iohexol (OMNIPAQUE 350 BULK-100 mL) injection 120 mL 09-29 02:15: 00 09-29 01:58 :00 No 120mL 120 mL, Intravenou s, ONCE, 1 dose, 09/29/19 at 2115, Routine [facility] naproxen 375 mg tablet 09-28 00:00: 00 Yes [id number] 105 375mg Take 1 tablet by mouth 2 (two) times daily with meals as needed for Pain (scale 7-10). [facility] No known medications No Un lui [facility] Vital Signs Vital Name Observation Time Observation Value Comments S ource Systolic blood pressure 2020-12-11 19:33:00 139 mm[Hg] [facility] Diastolic blood pressure 2020-12-11 19:33:00 85 mm[Hg] [facility] Heart rate 2020-12-11 19:33:00 95 /min Un[facility] Body temperature 2020-12-11 19:33:00 37.17 Cande [facility] Respiratory rate 2020-12-11 19:33:00 14 /min [facility] Body weight 2020-12-11 19:33:00 90.719 kg [facility] Oxygen saturation in Arterial blood by Pulse oximetry 2020-12-11 19:33:00 99 /min [facility] Systolic blood pressure 2019-09-30 02:35:00 128 mm[Hg] [facility] Diastolic blood pressure 2019-09-30 02:35:00 71 mm[Hg] [facility] Heart rate 2019-09-30 02:35:00 68 /min Unive [facility] Respiratory rate 2019-09-30 02:35:00 18 /min [facility] Oxygen saturation in Arterial blood by Pulse oximetry 2019-09-30 02:35:00 100 /min [facility] Body temperature 2019-09-29 23:34:00 37.28 [facility] Body height 2019-09-29 23:34:00 170.2 cm [facility] Body weight 2019-09-29 23:34:00 91.173 kg [facility] BMI 2019-09-29 23:34:00 31.48 kg/m2 [facility] Systolic blood pressure 2019-06-29 20:08:00 121 mm[Hg] [facility] Diastolic blood pressure 2019-06-29 20:08:00 84 mm[Hg] [facility] Heart rate 2019-06-29 20:08:00 88 /min Un[facility] Body temperature 2019-06-29 20:08:00 36.28 [facility] Respiratory rate 2019-06-29 20:08:00 18 /min [facility] Body weight 2019-06-29 20:08:00 88.497 kg [facility] Oxygen saturation in Arterial blood by Pulse oximetry 2019-06-29 20:08:00 99 /min [facility] Procedures Procedure Date / Time Performed Performing Clinicia n Source ASSIGNMENT OF BENEFITS 2020-12-11 20:43:57 Docto r Unassigned, [place] [facility] COVID-19 (ID NOW RAPID TESTING) 2020-12-11 19:36:00 Ricardo Tomas [facility] NOTICE OF PRIVACY PRACTICES 2020-12-11 19:28:53 Doctor Unassigned, [place] [facility] CONSENT/REFUSAL FOR DIAGNOSIS AND TREATMENT 2020-12-11 19:28:32 Doctor Unassigned, [place] [facility] CT CHEST PULMONARY ANGIOGRAM 2019-09-30 02:02:45 Doreen Aquino [facility] BASIC METABOLIC PANEL (NA, K, CL, CO2, GLUCOSE, BUN, CREATININE, CA) 2019-09-30 00:46:00 Doreen Aquino [facility] D-DIMER 2019-09-30 00:46:00 [facility] POCT TEST 2019-09-30 00:38:00 Timbo Aquino [facility] XR ANKLE 3+ VW LEFT 2019-09-30 00:17:24 Vanessa Dubon ra [facility] XR CHEST 2 VW 2019-09-30 00:17:05 Doreen Aquino [facility] EKG-12 LEAD 2019-09-29 23:56:40 Doreen [facility]ino [facility] NOTICE OF PRIVACY PRACTICES 2019-09-29 23:25:44 Doctor Unassigned, [place] [facility] CONSENT/REFUSAL FOR DIAGNOSIS AND TREATMENT 2019-09-29 23:25:31 Doctor Unassigned, [place] [facility] Encounters Start Date/Time End Date/Time Encounter Type Admission Type Attending Clinicians Care Facility Care Department Encounter ID Source 2021-03-09 13:28:56 Emergency [facility] [id number] [facility] 2023-03-05 00:00:00 2023-03-05 00:00:00 Outpatient GC_GCBZW_Ka diyala_S PRIV PRIV [id number] [facility] 2023-03-05 00:00:00 2023-03-05 00:00:00 Outpatient GC_GCBZW_Ka diyala_S PRIV PRIV [id number] [facility] 2021-01-15 15:34:16 2021-01-15 15:44:16 Laboratory Only Only, Ang Db Test Nani Pimentel [facility] [id number] [facility] 2021-01-15 15:15:00 2021-01-15 15:15:00 Outpatient R [facility] [id number] [facility] 2020-12-11 14:36:00 2020-12-11 15:54:00 Emergency Margarita Singleton [facility] [id number] [facility] 2020-12-11 00:00:00 2020-12-11 00:00:00 Orders Only Doctor Unassigned, [place] [facility] [id number] [id number] [facility] 2019-09-29 18:32:09 2019-09-29 22:10:00 Emergency X [facility] ERT [id number] [facility] 2019-09-29 18:32:09 2019-09-29 22:10:00 Emergency Doreen Aquino [facility] [id number] [id number] [facility] 2019-06-29 14:09:21 2019-06-29 15:20:00 Emergency Thalia Mat[facility] [id number] [facility] Results Test Description Test Time Test Comments Results Result Co mments Source [id number] 01:30:00* Test Item Value Reference Range Interpretation Comments D-DIMER (test code = 4950096259) See_Comment H [Automated message] The system which [...] a diagnosis. Lab Interpretation (test code = 47959-6) [facility]normal [facility] (NA, K, CL, CO2, GLUCOSE, BUN, CREATININE, CA)2019-09-30 01:25:00* Test Item Value Reference Range Interpretation Comme nts NA (test code = 2779855326) 140 mmol/L 135-145 K (test code = 4860310940) 4.0 mmol/L 3.5-5 CL (test code = 3734574177) 107 mmol/L 98-108 CO2 TOTAL (test code = 4581845790) 22 mmol/L 23-31 L AGAP (test code = 5996042685) 2-16 BUN (test code = 9309725749) 13 mg/dL 7-23 GLUCOSE (test code = 3759067626) 93 mg/dL 70-110 CREATININE (test code = 7449598505) 0.68 mg/dL 0.5-1.04 CALCIUM (test code = 4174729514) 9.5 mg/dL 8.6-10.6 eGFR Calculation (Non-) (test code = 9504043612) mL/min/1.73m2 eGFR Calculation () (test code = 7212730228) mL/min/1.73m2 JOLLY (test code = JOLLY) Association [...] imaging tests). Lab Interpretation (test code = 28115-9) [facility] 2 [id number] 00:43:22No acute cardiopulmonary abnormality. Preliminary Report Dictated [...] this study and agree withthe above report. [facility] [id number] 00:38:00* Test Item Value Reference Range Interpretation Comme nts POCT PREG (test code = 1605) Negative On board controls acceptable with C Line (test code = 3574) Present POCT PREG LOT # (test code = 3575) HCG [id number] POCT PREG TEST DATE ( test code = 3576) 12/06/2020 Lab Interpretation (test cod e = 96927-4) Normal [facility]
[2024-07-08 11:59] LABS: Absolute Lymphocytes (CBC) 0.9 K/uL (0.7-4.9); Absolute Monocytes 0.8 K/uL (0.1-1.3); Absolute Neutrophil 10.3 K/uL (1.8-8.0); Basophils % 0.2 % (0-1.3); Eosinophils % 0.3 % (0-4.4); Hematocrit 36.1 % (36.0-45.0); Hemoglobin 12.4 g/dL (12.0-15.0); Lymphocytes % 7.7 % (15.3-44.8); MCH 32.7 pg (27.0-35.0); MCHC 34.3 g/dL (32.0-36.0); MCV 95.1 fL (80-100); MPV 7.1 fL (7.6-11.3); Monocytes % 6.2 % (3.3-12.3); Neutrophils % 85.6 % (41.7-73.7); Platelets 252 thou/uL (152-406); Red Cell Distribution Width 11.9 % (12.1-15.2)
[2024-07-08 12:00] LABS: Specific Gravity 1.021 (1.005-1.030); Transitional Epithelial <5 /HPF (None Seen); Urine Bacteria 20-50 /HPF (<20); Urine Bilirubin NEGATIVE (Negative); Urine Blood 3+ (OVER) (Negative); Urine Clarity Extremely Turbid (Clear); Urine Color Yellow (Yellow); Urine Culture Reflex Order REFLEXED; Urine Glucose NEGATIVE (Negative); Urine Ketones 3+ (Negative); Urine Microscopic Reflex YN ORDER UMIC; Urine Mucus 4+ /HPF (None Seen); Urine Nitrite NEGATIVE (Negative); Urine Protein TRACE (Negative); Urine Urobilinogen Normal (Normal); Urine pH 5.5 (5.0-7.0)
[2024-07-08 12:07] LABS: Anion Gap 8.5 mEq/L (5.0-15.0); Potassium 3.5 mEq/L (3.5-5.1)
[2024-07-08] MEDS ORDERED: KETOROLAC 30 MG/ML INJ ONE (12:11)
[2024-07-08] MEDS ORDERED: NA CHLORIDE 0.9% 1,000 ML ONE (12:11)
[2024-07-08 12:31] LABS: Specific Gravity 1.021 (1.005-1.030)
[2024-07-08 12:51] LABS: Blood Morphology Comment NOT SEEN (NOT SEEN); Platelet Estimate ADEQ; White Blood Cell Scan OK (OK)
--- NOTE | 2024-07-08 13:00 | RAD REPORT ---
EXAM: CT pelvis with contrast HISTORY: Pelvic and hip pain labial abscess COMPARISON: None TECHNIQUE: Multiple contiguous axial images were obtained and a CT of the pelvis with IV contrast. Sa gittal and coronal reformats were performed. One or more of the following dose reduction techniques were used: Automated exposure control, adjustment of the mA and/or kV according to patient size, and/ or iterative reconstruction. FINDINGS: The visualized intrapelvic structures are unremarkable. The soft tissues surrounding the pelvis are u nremarkable. Enhancing thick walled fluid collection in the right labia measures 7.3 x 2.7 cm compatible with la bial abscess. No intrapelvic extension. No pelvic fractures are seen. No significant degenerative changes are seen. No additional abnormal areas of contrast-enhancement to suggest tumor or infection. IMPRESSION: 7.3 x 2.7 cm right labial abscess suspected. There is no evidence of intrapelvic extensio n of this infection.
--- NOTE | 2024-07-08 13:37 | EDPHYS ---
Physician Documentation [facility] Name: Nhung Jiang Age: 23 yrs Sex: Female : 2000 Arrival Date: 07/08/2024 Time: 10:39 Bed 16 Private MD: ED Physician Randall Deluna HPI: 07/08 11:48 This 23 yrs old Black Female presents to ER via Ambulatory with complaints of Cyst - on sb4 vaginal area. 11:51 the patient presents with a swollen area of the right labia minora. Description: The sb4 affected area is small, localized, swollen, tense. Onset: The symptoms/episode began/occurred 3 day(s) ago. Possible cause(s): unknown. Associated signs and symptoms: Pertinent negatives: discharge, drainage, fever. The patient has not experienced similar symptoms in the past. The patient has not recently seen a physician. 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 - Infectious Disease History:: Denies. - Social history:: Smoking status: Reported history of juuling and/or vaping. ROS: 11:51 Constitutional: Negative for fever, chills, and weight loss, sb4 11:51 : Positive for per HPI, 11:51 All other systems are negative, Exam: 11:51 Constitutional: This is a well developed, well nourished patient who is awake, alert, sb4 and in no acute distress. Head/Face: Normocephalic, atraumatic. Eyes: Extra-ocular motions intact. Periorbital areas with no swelling, redness, or edema. ENT: Mucous membranes moist. Cardiovascular: Regular rate and rhythm with a normal S1 and S2. Respiratory: No increased work of breathing, no retractions or nasal flaring. Abdomen/GI: Soft, non-tender, no distension. Skin: Warm, dry with normal turgor. Normal color with no rashes, no lesions, and no evidence of cellulitis. 11:51 : Pelvic Exam: External exam: no erythema, not excoriated, no evidence of foreign body, no lesions, no ulcerations, no warts seen, large labial abscess, right. moderate tenderness, no drainage, Vital Signs: 11:18 BP 119 / 76; Pulse 101; Resp 19; Temp 99.1; Pulse Ox 97% ; Weight 86.18 kg; Height 5 jl7 ft. 5 in. ; Pain 10/10; 12:22 BP 121 / 85; Pulse 81; Resp 18; Temp 98(O); Pulse Ox 100% on R/A; kj2 13:30 BP 124 / 82; Pulse 80; Resp 18; Pulse Ox 100% on R/A; kj2 15:36 BP 126 / 84; Pulse 78; Resp 18; Temp 98; Pulse Ox 100% on R/A; kj2 11:18 Body Mass Index 31.62 (86.18 kg, 165.1 cm) jl7 11:18 Pain Scale: Adult jl7 MDM: 10:48 Medical Screening Exam initiated sb4 14:04 Data reviewed: vital signs, nurses notes, lab test result(s), radiologic studies, and sb4 as a result, I will admit patient. Consideration of Admission/Observation Patient was admitted/placed on observation. 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 Counseling: I had a detailed discussion with the patient and/or guardian regarding the historical points, exam findings, and any diagnostic results supporting the discharge/admit diagnosis, lab results, radiology results, the need for further work-up and treatment in the hospital. 07/08 11:25 Order name: CBC with Diff; Complete Time: 12:55 sb4 07/08 11:25 Order name: Test, Urine; Complete Time: 12:32 sb4 07/08 11:25 Order name: Urinalysis w/ reflexes; Complete Time: 12:01 sb4 07/08 11:25 Order name: BMP; Complete Time: 12:08 sb4 07/08 11:25 Order name: GC (Simón/Chl) Probe URINE sb4 07/08 12:03 Order name: Urine Culture EDNE 07/08 12:51 Order name: CBC Smear Scan; Complete Time: 12:55 EDNE 07/08 13:28 Order name: Blood Culture Adult (2) sb4 07/08 13:28 Order name: Lactate w/ 2H reflex if indic.; Complete Time: 14:30 sb4 07/08 13:28 Order name: PT-INR; Complete Time: 14:26 sb4 07/08 13:28 Order name: Ptt, Activated; Complete Time: 14:26 sb4 07/08 13:47 Order name: Basic Metabolic Panel EDMS 07/08 13:47 Order name: Basic Metabolic Panel EDMS 07/08 13:47 Order name: Basic Metabolic Panel EDMS 07/08 13:47 Order name: Basic Metabolic Panel EDMS 07/08 13:47 Order name: Basic Metabolic Panel EDMS 07/08 13:47 Order name: CBC with Automated Diff EDMS 07/08 13:47 Order name: CBC with Automated Diff EDMS 07/08 13:47 Order name: CBC with Automated Diff EDMS 07/08 13:47 Order name: CBC with Automated Diff EDMS 07/08 13:47 Order name: CBC with Automated Diff EDMS 07/08 11:25 Order name: CT Pelvis w cont; Complete Time: 13:01 sb4 07/08 11:25 Order name: IV Saline Lock; Complete Time: 11:38 sb4 07/08 11:25 Order name: Labs collected and sent; Complete Time: 11:38 sb4 07/08 13:28 Order name: NPO; Complete Time: 13:39 sb4 Administered Medications: 12:17 Drug: NS 0.9% IV 1000 ml IV at 1 bolus Per protocol; to be given as a bolus over 60 kj2 minutes Route: IV; Rate: 1 bolus; Site: left antecubital; 14:04 Follow up: IV Status: Completed infusion; IV Intake: 1000ml kj2 12:17 Drug: Ketorolac IVP 15 mg IVP once Route: IVP; Site: left antecubital; kj2 14:04 Follow up: Response: No adverse reaction kj2 14:04 Drug: Piperacillin-Tazobactam IVPB 3.375 grams IVPB once over 60 mins; (mix in NS 100 kj2 mL) Route: IVPB; Infused Over: 60 mins; Site: left antecubital; 15:35 Follow up: IV Status: Completed infusion; IV Intake: 100ml kj2 15:35 Not Given (will start in OR): vancomycin1.5 grams IVPB at calculated rate once kj2 Disposition: 18:50 Co-signature as Attending Physician, Randall Deluna MD I reviewed the patient's care rt provided by the Advanced Practice Provider and agree with the diagnosis and treatment plan. Disposition Summary: 07/08/24 13:36 Hospitalization Ordered Notes: Hospitalization Status: Inpatient Admission sb4 Provider: Georges Pérez sb4 [facility] sb4 Condition: Fair sb4 Problem: new sb4 Symptoms: are unchanged sb4 Bed/Room Type: Standard sb4 Room Assignment: 204(07/08/24 14:00) sp Diagnosis - Labial abscess, right - 7 cm sb4 Forms: - Medication Reconciliation Form sb4 - SBAR form sb4 - Leadership Thank You Letter sb4 Signatures: Dispatcher [employer] EDMS Anusha Green Jahala RN RN jl7 Ghada Bowers PAIselaC PAIsealC sb4 Randall Deluna MD MD rt Ana Paula Nowak RN RN kj2 Corrections: (The following items were deleted from the chart) 11:26 11:26 CBC+H.LAB.BRZ ordered. EDNE EDMS 11:26 11:26 Test, Urine+UC.LAB.BRZ ordered. EDNE EDMS 11:26 11:26 Urinalysis+U.LAB.BRZ ordered. EDNE EDMS 11: 11:26 BASIC METABOLIC PANEL+C.LAB.BRZ ordered. EDNE EDMS 11:26 11:26 GC (Simón/Chl) Probe URINE+R.LAB.BRZ ordered. EDNE EDMS 13:28 13:28 BLOOD CULTURE*+BA.LAB.BRZ ordered. EDMS EDMS 13:28 13:28 LACTATE+C.LAB.BRZ ordered. EDNE EDMS 13:28 13:28 PROTIME (+INR)+COAG.LAB.BRZ ordered. EDMS EDMS 13:28 13:28 PTT, ACTIVATED+COAG.LAB.BRZ ordered. EDNE EDMS 14:00 13:36 sb4 sp 14:05 11:51 : Pelvic Exam: External exam: Bartholin's cyst present, no erythema, not sb4 excoriated, no evidence of foreign body, no lesions, no ulcerations, no warts seen, sb4
--- NOTE | 2024-07-08 13:37 | ER ---
Nurse's Notes [facility] Name: Nhung Jiang Age: 23 yrs Sex: Female : 2000 Arrival Date: 07/08/2024 Time: 10:39 Bed 16 Private MD: Diagnosis: Labial abscess, right - 7 cm Presentation: 07/08 11:18 Chief complaint: Patient states: Abscess to right labia x 3-4 days, intermittent jl7 vaginal discharge x 2 weeks, denies odor. Coronavirus screen: At this time, the client does not indicate any symptoms associated with coronavirus-19. Ebola Screen: No symptoms or risks identified at this time. Initial Sepsis Screen: Does the patient meet any 2 criteria? No. Patient's initial sepsis screen is negative. Does the patient have a suspected source of infection? No. Patient's initial sepsis screen is negative. Risk Assessment: Do you want to hurt yourself or someone else? Patient reports no desire to harm self or others. Onset of symptoms is unknown. 11:18 Method Of Arrival: Ambulatory jl7 11:18 Acuity: KARINE 3 jl7 Triage Assessment: 11:21 General: Appears in no apparent distress. uncomfortable, Behavior is calm, cooperative, jl7 appropriate for age. Pain: Complains of pain in pelvis Pain currently is 10 out of 10 on a pain scale. 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 - Infectious Disease History:: Denies. - Social history:: Smoking status: Reported history of juuling and/or vaping. Screenin:30 [facility] ED Fall Risk Assessment (Adult) History of falling in the last 3 months, kj2 including since admission No falls in past 3 months (0 pts) Confusion or Disorientation No (0 pts) Intoxicated or Sedated Impaired Gait No (0 pts) Mobility Assist Device Used No (0 pt) Altered Elimination No (0 pt) Score/Fall Risk Level 0 - 2 = Low Risk Maintained a safe environment, Hourly rounding (assess needs \T\ fall precautionary measures) done. Abuse screen: Denies threats or abuse. Denies injuries from another. Nutritional screening: No deficits noted. Tuberculosis screening: No symptoms or risk factors identified. Assessment: 11:30 General: Appears in no apparent distress. Behavior is calm, cooperative. Pain: kj2 Complains of pain in right labia minora and groin Pain currently is 3 out of 10 on a pain scale. Neuro: Level of Consciousness is awake, alert, obeys commands, Oriented to person, place, time, situation. Cardiovascular: Patient's skin is warm and dry. Respiratory: Airway is patent Respiratory effort is even, unlabored. GI: No signs and/or symptoms were reported involving the gastrointestinal system. : Reports discharge, from vagina that is. 12:23 Reassessment: Patient appears in no apparent distress at this time. Patient and/or kj2 family updated on plan of care and expected duration. Pain level reassessed. Patient is alert, oriented x 3, equal unlabored respirations, skin warm/dry/pink. 13:30 Reassessment: Patient appears in no apparent distress at this time. Patient and/or kj2 family updated on plan of care and expected duration. Pain level reassessed. Patient is alert, oriented x 3, equal unlabored respirations, skin warm/dry/pink. 14:30 Reassessment: Patient appears in no apparent distress at this time. Patient and/or kj2 family updated on plan of care and expected duration. Pain level reassessed. Patient is alert, oriented x 3, equal unlabored respirations, skin warm/dry/pink. 15:36 Reassessment: Patient appears in no apparent distress at this time. Patient and/or kj2 family updated on plan of care and expected duration. Pain level reassessed. Patient is alert, oriented x 3, equal unlabored respirations, skin warm/dry/pink. Vital Signs: 11:18 BP 119 / 76; Pulse 101; Resp 19; Temp 99.1; Pulse Ox 97% ; Weight 86.18 kg; Height 5 jl7 ft. 5 in. ; Pain 10/10; 12:22 BP 121 / 85; Pulse 81; Resp 18; Temp 98(O); Pulse Ox 100% on R/A; kj2 13:30 BP 124 / 82; Pulse 80; Resp 18; Pulse Ox 100% on R/A; kj2 15:36 BP 126 / 84; Pulse 78; Resp 18; Temp 98; Pulse Ox 100% on R/A; kj2 11:18 Body Mass Index 31.62 (86.18 kg, 165.1 cm) jl7 11:18 Pain Scale: Adult jl7 ED Course: 10:42 Patient arrived in ED. im 10:45 Ghada Bowers PA-C is PHCP. sb4 10:45 Randall Deluna MD is Attending Physician. sb4 11:21 Triage completed. jl7 11:21 Arm band placed on right wrist. jl7 11:30 Patient has correct armband on for positive identification. Bed in low position. Call kj2 light in reach. Provided Education on: call light. 11:39 Initial lab(s) drawn, by me, sent to lab. Urine collected: clean catch specimen, elaine bp colored. Inserted saline lock: 20 gauge in left antecubital area, using aseptic technique. Blood collected. Flushed with 10 mL NS. 11:53 Ana Paula Nowak, MATILDE is Primary Nurse. kj2 12:52 CT Pelvis w cont In Process Unspecified. EDMS 13:36 Georges Pérez MD is Hospitalizing Provider. sb4 15:37 Patient admitted, IV remains in place. kj2 15:37 No provider procedures requiring assistance completed. kj2 Administered Medications: 12:17 Drug: NS 0.9% IV 1000 ml IV at 1 bolus Per protocol; to be given as a bolus over 60 kj2 minutes Route: IV; Rate: 1 bolus; Site: left antecubital; 14:04 Follow up: IV Status: Completed infusion; IV Intake: 1000ml kj2 12:17 Drug: Ketorolac IVP 15 mg IVP once Route: IVP; Site: left antecubital; kj2 14:04 Follow up: Response: No adverse reaction kj2 14:04 Drug: Piperacillin-Tazobactam IVPB 3.375 grams IVPB once over 60 mins; (mix in NS 100 kj2 mL) Route: IVPB; Infused Over: 60 mins; Site: left antecubital; 15:35 Follow up: IV Status: Completed infusion; IV Intake: 100ml kj2 15:35 Not Given (will start in OR): vancomycin1.5 grams IVPB at calculated rate once kj2 Medication: 11:56 VIS not applicable for this client. kj2 Intake: 14:04 IV: 1000ml; Total: 1000ml. kj2 15:35 IV: 100ml; Total: 1100ml. kj2 Outcome: 13:36 Decision to Hospitalize by Provider. sb4 15:36 Admitted to Med/surg accompanied by tech, kj2 15:36 Condition: stable 15:36 Instructed on the need for admit, 15:37 Patient left the ED. kj2 Signatures: Dispatcher [employer] Zamzam Donahue, RN RN [email or web address] Cj Galan, RN RN Ghada Matthews, PA-C PA-C sb4 Gisele Campa Krystal, RN RN kj2
[2024-07-08] MEDS ORDERED: NA CHLORIDE 0.9% 100 ML ONE (13:42)
[2024-07-08] MEDS ORDERED: PIPERACIL/TAZO 3.375 GM VIAL IV ONE (13:42)
[2024-07-08] MEDS ORDERED: ONDANSETRON 4 MG/2 ML VIAL IV PRN (13:46)
[2024-07-08] MEDS ORDERED: MORPHINE 2 MG/ML SYR IV PRN (13:46)
[2024-07-08 14:22] LABS: PT Prothrombin Time 15.1 SECONDS (10.0-13.0); PTT, Activated Partial Thromb 25.4 SECONDS (24.3-36.9); Protime INR 1.34
--- NOTE | 2024-07-08 14:31 | P.HP ---
Certification for Inpatient Patient admitted to: Inpatient Patient will require the following post-hospital care: None Practitioner: I am a practitioner with admitting privileges, knowledge of patient current condition, hospital course, and medical plan of care. Services: Services provided to patient in accordance with Admission requirements found in Title 42 Section 412.3 of the Code of Federal Regulations Patient History Date of Service: 07/08/24 Reason for admission: Labial abscess History of Present Illness: 23-year-old otherwise healthy female presents to the emergency department with chief complaint of vaginal/labial pain/swelling. She reports that she has been dealing with the issue ongoing for around a year to year and a half but typically the swelling and pain is very mild and resolved on its own without any drainage. This time the pain and swelling is significantly increased and not getting better. She was evaluated in the ER her labs are significant for a white blood cell count 12.1 CT of the pelvis was obtained which showed a 7.3 x 2.7 cm right labial abscess. She was started on antibiotics with vancomycin/Zosyn, seen by general surgery in the ED who plans to bring her to the OR for surgical incision and drainage given the size of the abscess. Allergies No Known Allergies Allergy (Unverified 07/31/16 15:38) - Past Medical/Surgical History -: None -: Cosmetic surgeries Psychosocial/ Personal History: Lives with her family - Social History Alcohol use: No CD- Drugs: No Caffeine use: Yes Place of Residence: Home Review of Systems 10-point ROS is otherwise unremarkable Genitourinary: Other (Vaginal pain/swelling) Physical Examination - Physical Exam General: Alert, In no apparent distress, Oriented x3 HEENT: Atraumatic, PERRLA, EOMI Neck: Supple, 2+ carotid pulse no bruit, No LAD Respiratory: Clear to auscultation bilaterally, Normal air movement Cardiovascular: Regular rate/rhythm, Normal S1 S2 Gastrointestinal: Normal bowel sounds, No tenderness Musculoskeletal: No tenderness Integumentary: No rashes Neurological: Normal speech, Normal strength at 5/5 x4 extr External genitalia: Other (Abscess noted to right labial area) - Studies Laboratory Data (last 24 hrs) 07/08/24 07/08/24 11:40 11:40 WBC 12.10 H Hgb 12.4 Hct 36.1 Plt Count 252 Sodium 137 Potassium 3.5 BUN 12 Creatinine 0.85 Glucose 88 Assessment and Plan - Plan Assessment: Large right labial abscess Plan: Large right labial abscess Plan for surgical I&D today Continue antibiotics vancomycin/Zosyn Await further recs from general surgery DVT PPX:SCD Code status:Full Discharge Plan: Home Plan to discharge in: 48 Hours - Advance Directives Does patient have a Living Will: No Does patient have a Durable POA for Healthcare: No Critical Care: No Time Spent Managing Pts Care (In Minutes): 65
[2024-07-08] MEDS ORDERED: VANCOMYCIN 1.5 GM in NA CHLORIDE 0.9% 500 ML IVPB SCH (15:00)
[2024-07-08] MEDS: Ringers Lactate 1,000 ML IV ONE (15:40)
[2024-07-08] MEDS: PIPER TAZO 3.375 GM in NA CHLORIDE 0.9% 100 ML IV SCH (17:00)
[2024-07-08] MEDS ORDERED: ONDANSETRON 4 MG/2 ML VIAL ONE (17:26)
[2024-07-08] MEDS ORDERED: LIDOCAINE 2% MPF 5 ML VIAL ONE (17:26)
[2024-07-08] MEDS ORDERED: MIDAZOLAM HCL 2 MG/2 ML INJ ONE (17:26)
[2024-07-08] MEDS ORDERED: propofoL 200 MG/20 ML VIAL IV ONE (17:26)
[2024-07-08] MEDS ORDERED: FENTANYL CITR 100 MCG/2 ML ONE (17:26)
[2024-07-08] MEDS ORDERED: dexAMETHasone 4 MG/ML VIAL ONE (18:19)
[2024-07-08] MEDS: LIDOCAINE HCL/EPINEPHRINE 20 ML MDV ONE (18:20)
--- NOTE | 2024-07-08 18:29 | P.OP ---
Preoperative diagnosis: RIGHT Labial Abscess Postoperative diagnosis: RIGHT Labial Abscess Primary procedure: Incision and Drainage of RIGHT Labial Abscess Secondary procedure: Exam under anesthesia Anesthesia: GETA + Local Estimated blood loss: <2cc Specimen: Cultures Findings: ~ 7cmx 3cm RIGHT labial abscess Complications: None Transferred to: Recovery Room Condition: Good
[2024-07-08] MEDS: HYDROMORPHONE HCL 2 MG/ML inj ONE (18:51)
--- NOTE | 2024-07-08 19:03 | CON ---
Date of Consultation: 07/08/2024 Brief Hpi: The patient is a 23-year-old female, who comes in with approximately 3-day history of swe lling of her right labia. She feels that it is the labia minora as well as area of majora with a swo llen tender area which got progressively worse. As such, she came to the emergency room with the abo ve-stated complaints. She has not had similar episodes before in the past. No sick contacts. No re cent travel. No new exposures. Allergies: NO KNOWN DRUG ALLERGIES. Home Medications: None. Past Medical History: Asthma. Past Surgical History: Negative. Social History: She denies smoking, but does vape. She drinks only wine recreationally and denies a ny recreational drug. Review of Systems: A 10-point review of systems other than HPI, denies. Physical Examination: At the time of my examination, General: She is awake, alert, oriented. Psychiatric: She is appropriate. Conversive. HEENT: Normocephalic. Sclerae icteric. Mucous membranes are moist. Oropharynx clear. Neck: Supple. No JVD. Chest: Normal to expansion and excursion. Cardiovascular: Regular rate and rhythm. Pulmonary: Clear to auscultation bilaterally. Abdomen: Soft. Extremities: No clubbing, cyanosis, or edema. Skin: Warm and dry. Focused examination of the genital area shows an area of fluctuance, tenderness on the right labia consistent with an abscess. There is tenderness to the areas with some discolora tion of the skin. Laboratory Data: Reveals white blood count of 12.1, hemoglobin is 12.4, hematocrit 36.1, platelet co unt is 252, neutrophils 85%. Sodium 137, potassium 3.5, chloride 107, carbon dioxide 25, BUN 12, cre atinine 0.85, glucose is 88. Her calcium is 9.2. UA showed extremely turbid, 3+ ketones, 3+ blood, 500 leukocyte esterase, 5 to 10 red blood cells, 10 to 20 white blood cells, 20 to 50 bacteria, 4+ mu cus, trace protein. test via urine was negative. She had a CT scan of the pelvis, which o fficially read as a 7.3 x 2.7 cm right labial abscess suspected. No evidence of intrapelvic extensio n of this infection. Assessment And Plan: This is a 23-year-old female who comes in with signs and symptoms of a signific ant right labial abscess. 1. IV fluid hydration. 2. Antibiotic coverage. 3. I have explained risks, benefits, and alternatives of incision and drainage of labial abscess incl uding but not limited to bleeding, infection, damage to surrounding tissues, need further operative p rocedures, numbness of the skin areas, possibility ongoing wound care with necessary. There could be other unforeseen complications of perioperative period including but not limited to, heart attack, b lood clots, strokes, and other unforeseen complications both related to anesthesia and non-anesthesia related issues. The patient displayed understanding of above-stated plan and agreed to proceed as i ndicated. ED/DONALDO Voice ID: [id number] Report ID: [id number]
[2024-07-08 19:59] VITALS: BMI 31.6
[2024-07-08] MEDS: VANCOMYCIN 1.5 GM in NA CHLORIDE 0.9% 500 ML IVPB SCH (20:00)
[2024-07-08] MEDS: HYDROCODONE/APAP 5/325 MG TAB PO PRN (20:27)
[2024-07-08] MEDS: NA CHLORIDE 0.9% 1,000 ML IV SCH (20:29)
[2024-07-08] MEDS ORDERED: PIPER TAZO 3.375 GM in NA CHLORIDE 0.9% 100 ML IV SCH (20:30)
[2024-07-08] MEDS: PIPER TAZO 3.375 GM in NA CHLORIDE 0.9% 100 ML IV ONE (20:37)
--- NOTE | 2024-07-08 20:58 | OP ---
Date of Procedure: 07/08/2024 Surgeon: Spencer Yañez MD, Preoperative Diagnosis: Right labial abscess. Postoperative Diagnosis: Right labial abscess. Procedures Performed: 1. Exam under anesthesia. 2. Incision and drainage of right labial abscess. Anesthesia: General endotracheal plus local with 1% lidocaine with epinephrine. Estimated Blood Loss: Less than 2 cc. Specimens: Culture sent, both aerobic and anaerobic speciation. Findings: Approximately 7 cm x 3 cm right labial abscess. Complications: None. Disposition: The patient was transferred to recovery room in good condition. Procedure In Detail: After informed consent was obtained, the patient was brought to the operating r oom, prepped and draped in usual sterile fashion. After adequate anesthesia was achieved, I palpated near the right labia. There was significant abscess in this area. There was no obvious involvement in the vaginal vault; however, there was compression effect of this down into the right wall of the vaginal orifice. In addition, I extended posteriorly toward the rectum, but did not have any obvious rectal involvement. At this point, I made an incision overlying the area after appropriately anesth etizing the skin to the right of midline involving the labia majora. I opened the cavity for approxi mately 2.5 to 3 cm in size. A large abscess material was appreciated at this point with small locula tions, which were broken up by digital manipulation. At this point, culture was sent for both aerobi c and anaerobic speciation. I cleaned out the entire area. I copiously irrigated the area multiple times until completely clear. I then achieved hemostasis with minimal electrocautery and then packed the wound with Vashe-soaked half-inch plain packing, and a sterile dressing was placed over the top. The patient tolerated procedure without incident or complication, and transferred to PACU in good c ondition. All counts were correct at the end of the case. TK/MODL Voice ID: [id number] Report ID: [id number]
[2024-07-08] MEDS: MORPHINE 4 MG/ML SYR IV PRN (22:56)
[2024-07-09] MEDS: MELATONIN 3 MG TABLET PO PRN (01:09)
[2024-07-09 05:08] LABS: Absolute Lymphocytes (CBC) 0.7 K/uL (0.7-4.9); Absolute Monocytes 0.6 K/uL (0.1-1.3); Absolute Neutrophil 13.5 K/uL (1.8-8.0); Basophils % 0.2 % (0-1.3); Hematocrit 32.9 % (36.0-45.0); Hemoglobin 11.4 g/dL (12.0-15.0); Lymphocytes % 4.9 % (15.3-44.8); MCHC 34.5 g/dL (32.0-36.0); MCV 95.5 fL (80-100); MPV 6.9 fL (7.6-11.3); Platelets 264 thou/uL (152-406); RBC Red Blood Cell Count 3.45 M/uL (3.86-4.86); Red Cell Distribution Width 11.7 % (12.1-15.2)
[2024-07-09 05:12] LABS: Neutrophils % 90.9 % (41.7-73.7)
[2024-07-09 05:27] LABS: Anion Gap 8.8 mEq/L (5.0-15.0); Potassium 3.8 mEq/L (3.5-5.1)
[2024-07-09] MEDS: POTASSIUM 25 MEQ EFFERV TAB PO ONE (05:50)
--- NOTE | 2024-07-09 07:19 | P.PN ---
Date of Service: 07/09/24 Subjective: continues with pain, slightly improved denies urinary symptoms afebrile ROS: 10 point ROS as noted above, otherwise negative Physical Exam: GEN: Alert, oriented, NAD CV: Regular rate and rhythm, no edema Pulm: Nonlabored respirations on room air, clear bilaterally Integumentary: dressing in place over right labia Neuro: Normal speech, normal affect Problem List: Large right labial abscess, s/p I&D (07/08) on admission, presents with vaginal/labial pain/swelling. CT pelvis (07/08): 7.3 x 2.7 cm right labial abscess suspected. No evidence of intrapelvic extension. Dr. Yañez is following s/p I&D of labial abscess (07/08) continue empiric vanc / zosyn (07/08-) follow wound and blood cultures: Pending Urine cx: 2+ GNR prelim; Patient denies urinary symptoms. afebrile, +leukocytosis 12 -> 14.8 Daily wound care per surgery: Remove all packing from labial wound then irrigate area with sterile water followed by repacking with half-inch plain packing damp with Vashe then apply dry gauze and tape. Continue IV fluids advance diet pain control Code: Full Dispo: Home- likely tomorrow Pending surgical recs, pain control Time Spent Managing Pts Care (In Minutes): 55
[2024-07-09] MEDS: FLU (Fluarix Triv) TS24-25(6MOS UP)/PF 45 MCG/0.5 ML Syringe IM ONE (12:00)
[2024-07-09] MEDS: VANCOMYCIN 1.5 GM in NA CHLORIDE 0.9% 500 ML IVPB SCH (21:19)
[2024-07-09] MEDS: ZOLPIDEM TARTRATE 5 MG TABLET PO ONE (23:33)
[2024-07-10 02:18] VITALS: O2SAT 100
[2024-07-10 07:28] LABS: Absolute Basophils 0.1 K/uL (0-0.5); Absolute Eosinophils 0.1 K/uL (0-0.5); Absolute Lymphocytes (CBC) 2.6 K/uL (0.7-4.9); Absolute Monocytes 0.4 K/uL (0.1-1.3); Absolute Neutrophil 5.5 K/uL (1.8-8.0); Basophils % 0.7 % (0-1.3); Eosinophils % 0.6 % (0-4.4); Hemoglobin 11.2 g/dL (12.0-15.0); Lymphocytes % 29.7 % (15.3-44.8); MCH 32.6 pg (27.0-35.0); MCHC 33.9 g/dL (32.0-36.0); MCV 96.1 fL (80-100); Monocytes % 5.2 % (3.3-12.3); Neutrophils % 63.8 % (41.7-73.7); Nucleated Red Blood Cells % 0.2 % (0-0); Platelets 238 thou/uL (152-406); RBC Red Blood Cell Count 3.44 M/uL (3.86-4.86); Red Cell Distribution Width 11.8 % (12.1-15.2)
[2024-07-10 07:40] LABS: Anion Gap 7.7 mEq/L (5.0-15.0); Potassium 3.7 mEq/L (3.5-5.1)
[2024-07-10] MEDS: VANCOMYCIN 1.75 GM in NA CHLORIDE 0.9% 500 ML IVPB SCH (08:54)
--- NOTE | 2024-07-10 12:14 | P.DS ---
Admission Date: 07/08/24 Discharge Date: 07/10/24 Disposition: ROUTINE DISCHARGE Discharge Condition: GOOD Reason for Admission: Labial abscess Hospital Course: Diagnosis Large right labial abscess, s/p I&D Patient presented to the ER with vaginal/labial pain/swelling. CT pelvis showed 7.3 x 2.7 cm right labial abscess. Patient was evaluated by Dr. Yañez, general surgeon, and underwent I&D of right labial abscess on 07/08. She was started on empiric IV vancomycin and zosyn and had improvement of her symptoms. Patient monitored post-operatively, feeling better, afebrile > 24 hours, pain/swelling improved, and was deemed stable for discharge. Patient is to complete 14 days of oral Augmentin and doxycycline on discharge. Follow up with Dr. Yañez in office in 1 week for further management. Medications: Doxycycline Augmentin Watson Ibuprofen. pain meds Follow up: PCP 3-5 days Please call to schedule / confirm appointments Local wound care per Surgery: Daily dressing changes: Remove all packing from labial wound then irrigate area with sterile water followed by repacking with half-inch plain packing damp with Vashe then apply dry gauze and tape. Vital Signs/Physical Exam: Temp Pulse Resp BP Pulse Ox 98.3 F 63 18 116/61 100 07/10/24 08:00 07/10/24 08:00 07/10/24 08:00 07/10/24 08:00 07/10/24 08:00 General: Alert, In no apparent distress HEENT: Mucous membr. moist/pink Neck: JVD not distended, JVD distended Respiratory: Normal air movement Cardiovascular: No edema, Regular rate/rhythm, Normal S1 S2 Gastrointestinal: Normal bowel sounds, Soft and benign, Non-distended Musculoskeletal: No swelling Integumentary: No cyanosis Neurological: Normal strength at 5/5 x4 extr Laboratory Data at Discharge: WBC 8.60 thou/uL (4.3-10.9) 07/10/24 07:14 Hgb 11.2 g/dL (12.0-15.0) L 07/10/24 07:14 Hct 33.0 % (36.0-45.0) L 07/10/24 07:14 Plt Count 238 thou/uL (152-406) 07/10/24 07:14 PT 15.1 SECONDS (10.0-13.0) H 07/08/24 13:55 INR 1.34 07/08/24 13:55 APTT 25.4 SECONDS (24.3-36.9) 07/08/24 13:55 Sodium 139 mEq/L (136-145) 07/10/24 07:14 Potassium 3.7 mEq/L (3.5-5.1) 07/10/24 07:14 BUN 5 mg/dL (7-18) L 07/10/24 07:14 Creatinine 0.78 mg/dL (0.55-1.02) 07/10/24 07:14 Glucose 100 mg/dL (74-106) 07/10/24 07:14 Home Medications: Amox/Clavulanate [Augmentin 875-125 Tab] 1 each PO BID #28 tab 07/10/24 Doxycycline Hyclate 100 mg PO BID #28 cap 07/10/24 Hydrocodone/Acetaminophen [Hydrocodon-Acetaminophn 10-325] 1 each PO Q4H PRN #20 tab 07/10/24 Ibuprofen 400 mg PO Q6H PRN #30 tab 07/10/24 New Medications: Amox/Clavulanate [Augmentin 875-125 Tab] 1 each PO BID #28 tab Doxycycline Hyclate 100 mg PO BID #28 cap Hydrocodone/Acetaminophen [Hydrocodon-Acetaminophn 10-325] 1 each PO Q4H PRN #20 tab PRN Reason: Pain Ibuprofen 400 mg PO Q6H PRN #30 tab PRN Reason: Pain Physician Discharge Instructions: Physician discharge instructions: Patient presented to the ER with vaginal/labial pain/swelling. CT pelvis showed 7.3 x 2.7 cm right labial abscess. Patient was evaluated by Dr. Yañez, general surgeon, and underwent I&D of right labial abscess on 07/08. She was started on empiric IV vancomycin and zosyn and had improvement of her symptoms. Patient monitored post-operatively, feeling better, afebrile > 24 hours, gregory n/swelling improved, and was deemed stable for discharge. Patient is to complete 14 days of oral Augmentin and doxycycline on discharge. Follow up with Dr. Yañez in office in 1 week for further management. Medications: Doxycycline Augmentin Watson Ibuprofen pain meds Follow up: PCP 3-5 days Please call to schedule / confirm appointments Local wound care per Surgery: Daily dressing changes: Remove all packing from labial wound then irrigate area with sterile water followed by repacking with half-inch plain packing damp with Vashe then apply dry gauze and tape. Diet: Regular Activity: Ad keshia Followup: Spencer Yañez MD [ACTIVE - CAN ADMIT] - NONE,NONE [Primary Care Provider] - Time spent managing pt's care (in minutes): 38
[2024-07-10 12:23] VITALS: BP 138/80; TEMP 98.4
[2024-07-10] MEDS: KETOROLAC 30 MG/ML INJ IV SCH (13:07)
[2024-07-10] MEDS: MORPHINE 4 MG/ML SYR IV PRN (13:08)
[2024-07-11 08:42] LABS: C.trachomatis RNA,TMA Not Detected (Not Detected); N.gonorrhoeae RNA,TMA Not Detected (Not Detected)
== END 2024-07-10 14:00 | disposition home or self-care (01) | DRG 872 ==
LOC: ER 10:39 → ERHOLD 13:42 → 2ND 14:52
PROVIDERS: ADMIT Hospitalist; ATTEND Internal Medicine
PROC: 0J9B0ZZ Drainage of Perineum Subcutaneous Tissue and Fascia, Open Approach (ICD-10-PCS; principal; 2024-07-08 16:30)
DX: A41.9 Sepsis, unspecified organism (principal); N76.4 Abscess of vulva; N39.0 Urinary tract infection, site not specified; B96.3 Hemophilus influenzae [H. influenzae] as the cause of diseases classified elsewhere; B96.29 Other Escherichia coli [E. coli] as the cause of diseases classified elsewhere; B95.1 Streptococcus, group B, as the cause of diseases classified elsewhere
CPT/HCPCS: 36415; 72193; 80048; 80202; 81001; 81025; 83605; 85025; 85610; 85730; 87040; 87070; 87075; 87077; 87086; 87088; 87184; 87186; 87205; 87490; 87590; 90656; 96361; 96365; 96366; 96375; 99285; J1100; J1171; J2003; J2250; J2405; J2543; J2704; J3010; J3370; J7030; J7040; J7120; Q9967